=== PATIENT | male | born 1970 | race Caucasian/White ===

== ENCOUNTER 2020-01-12 17:57 | Inpatient (IN) ==
[2020-01-12 19:09] LABS: Basophils % 0.5 %; Eosinophils # 0.2 K/mcL (0.0-0.6); Eosinophils % 2.3 %; Hematocrit 33.9 % (37.5-50.1); Hemoglobin 11.8 g/dL (12.9-16.9); Immature Granulocytes % 0.3 % (0-4); Lymphocytes # 2.5 K/mcL (0.6-4.6); Lymphocytes % 28.5 %; Mean Corpuscular HGB Conc 34.8 g/dL (31.6-35.5); Mean Corpuscular Hemoglobin 29.7 pg (28.0-33.3); Mean Corpuscular Volume 85.4 fL (83.0-100.0); Mean Platelet Volume 10.1 fL (9.4-12.4); Monocytes # 0.5 K/mcL (0.0-1.3); Monocytes % 5.7 %; Neutrophils # 5.4 K/mcL (1.6-8.9); Platelet Count 208 K/mcL (140-400); Red Blood Count 3.97 M/mcL (4.19-5.50); Red Cell Distribution Width 12.7 % (11.5-14.5); Segmented Neutrophils % 62.7 %; White Blood Count 8.6 K/mcL (4.3-11.1)
[2020-01-12 19:25] LABS: Alanine Aminotransferase 16 Units/L (7-52); Albumin 3.6 g/dL (3.5-5.7); Alkaline Phosphatase 71 Units/L (34-104); Aspartate Amino Transferase 24 Units/L (13-39); BUN/Creatinine Ratio 10 (6-26); Bilirubin,Total 0.4 mg/dL (0.3-1.0); Blood Urea Nitrogen 18 mg/dL (6-20); Calcium 8.8 mg/dL (8.6-10.3); Carbon Dioxide 24 mEq/L (23-29); Chloride 108 mEq/L (98-107); Globulin 3.7 g/dL (2.4-3.5); Glucose 152 mg/dL (70-105); Osmolality,Calculated 293 (280-300); Potassium 4.3 mEq/L (3.5-5.1); Sodium 139 mEq/L (136-145); Total Protein 7.3 g/dL (6.4-8.9); eGFR For African Americans 51 (> 60); eGFR For Non-African Americans 42 (> 60)
[2020-01-12 19:26] LABS: Troponin I < 0.03 ng/mL (< 0.04)
[2020-01-12] MEDS: niCARdipine 20 MG/200 ML MLS IVC SCH (20:35)
[2020-01-12] MEDS ORDERED: Naloxone 0.4 MG/ML INJ IVP PRN ×2 (23:34→23:35)
[2020-01-12] MEDS ORDERED: Ondansetron ODT 4 MG TAB.RAPDIS SL PRN (23:35)
[2020-01-12] MEDS ORDERED: Acetaminophen 325 MG TABLET PO PRN (23:35)
[2020-01-12] MEDS ORDERED: Perflutren Lipid Microsphere 1.3 ML in 0.9 % Sodium Chloride 8.7 ML IVP PRN (23:36)
[2020-01-12] MEDS ORDERED: Dextrose Gel 15 GM/37.5 ML TUBE PO PRN ×2 (23:37)
[2020-01-12] MEDS ORDERED: D5% in Water 1,000 ML IVC PRN (23:37)
[2020-01-12] MEDS ORDERED: *HR* Dextrose 50 % in Water (Vial) 50 ML VIAL IVP PRN (23:37)
[2020-01-13] MEDS: niCARdipine 20 MG/200 ML MLS IVC SCH ×5 (00:35→21:17)
[2020-01-13] MEDS: Insulin LISPRO 300 UNITS/3 ML VIAL SQ SCH ×4 (00:45→17:20)
[2020-01-13 01:36] LABS: Basophils % 0.5 %; Eosinophils # 0.1 K/mcL (0.0-0.6); Eosinophils % 1.2 %; Hematocrit 34.5 % (37.5-50.1); Hemoglobin 12.4 g/dL (12.9-16.9); Immature Granulocytes % 0.4 % (0-4); Lymphocytes # 1.4 K/mcL (0.6-4.6); Lymphocytes % 17.4 %; Mean Corpuscular HGB Conc 35.9 g/dL (31.6-35.5); Mean Corpuscular Hemoglobin 30.7 pg (28.0-33.3); Mean Corpuscular Volume 85.4 fL (83.0-100.0); Mean Platelet Volume 10.2 fL (9.4-12.4); Monocytes # 0.4 K/mcL (0.0-1.3); Monocytes % 4.7 %; Neutrophils # 6.2 K/mcL (1.6-8.9); Platelet Count 188 K/mcL (140-400); Red Blood Count 4.04 M/mcL (4.19-5.50); Red Cell Distribution Width 12.8 % (11.5-14.5); Segmented Neutrophils % 75.8 %; White Blood Count 8.1 K/mcL (4.3-11.1)
[2020-01-13 01:58] LABS: Chol/HDL Ratio 5.6 (0-4.9); Phosphorous 2.7 mg/dL (2.7-4.5)
[2020-01-13 02:01] LABS: % Iron Saturation 23 % (20-55); Iron 73 mcg/dL (65-175); Transferrin 222 mg/dL (203-362)
[2020-01-13 02:11] LABS: Thyroid Stimulating Hormone 0.882 mcIU/mL (0.340-5.600)
[2020-01-13 02:16] LABS: Ferritin 118 ng/mL (20-250)
[2020-01-13 02:22] LABS: Folate 12.3 ng/mL (3.0-16.0)
[2020-01-13 10:02] LABS: Bilirubin,Urine Negative (Negative); Blood,Urine Trace (Negative); Clarity,Urine Clear (Clear); Color,Urine Light-Yellow (Yellow); Glucose,Urine (UA) 200 mg/dL (Normal); Hyaline Casts,Urine Few per lpf (None Seen); Ketones,Urine Negative (Negative); Leukocyte Esterase,Urine Negative (Negative); Mucus,Urine Few per lpf (None-Few); Nitrite,Urine Negative (Negative); Protein,Urine >=300 mg/dL (Neg-Trace); Specific Gravity,Urine 1.022 (1.010-1.025); Urobilinogen,Urine Normal (Normal); WBC,Urine 0-3 per hpf (0-3)
[2020-01-13 13:42] LABS: Calcium 8.9 mg/dL (8.6-10.3); Potassium 4.2 mEq/L (3.5-5.1)
[2020-01-13 15:27] LABS: Estimated Average Glucose 180 mg/dl
[2020-01-13] MEDS: amLODIPine 5 MG TABLET PO SCH (16:10)
[2020-01-14] MEDS: niCARdipine 20 MG/200 ML MLS IVC SCH ×4 (00:05→22:55)
[2020-01-14 06:29] LABS: Basophils # 0.1 K/mcL (0.0-0.2); Basophils % 0.6 %; Eosinophils # 0.3 K/mcL (0.0-0.6); Eosinophils % 3.2 %; Hemoglobin 12.7 g/dL (12.9-16.9); Immature Granulocytes % 0.4 % (0-4); Lymphocytes % 31.9 %; Mean Corpuscular HGB Conc 35.3 g/dL (31.6-35.5); Mean Corpuscular Volume 85.1 fL (83.0-100.0); Mean Platelet Volume 10.7 fL (9.4-12.4); Monocytes # 0.7 K/mcL (0.0-1.3); Monocytes % 7.1 %; Neutrophils # 5.4 K/mcL (1.6-8.9); Platelet Count 218 K/mcL (140-400); Red Blood Count 4.23 M/mcL (4.19-5.50); Red Cell Distribution Width 12.7 % (11.5-14.5); Segmented Neutrophils % 56.8 %; White Blood Count 9.5 K/mcL (4.3-11.1)
[2020-01-14 06:56] LABS: Calcium 8.9 mg/dL (8.6-10.3); Potassium 4.2 mEq/L (3.5-5.1)
[2020-01-14] MEDS: amLODIPine 5 MG TABLET PO SCH (08:02)
[2020-01-14] MEDS: Insulin LISPRO 300 UNITS/3 ML VIAL SQ SCH ×3 (08:02→17:01)
[2020-01-14] MEDS ORDERED: carvediloL 6.25 MG TABLET PO SCH (10:05)
[2020-01-14 16:40] LABS: Complement C3 138 mg/dL (87-200)
[2020-01-14] MEDS: carvediloL 6.25 MG TABLET PO SCH (17:02)
[2020-01-15 01:46] LABS: Protein/Creatinine Ratio,Urine 2.59 mg/mg (0.00-0.20); Sodium, Urine 59.9 mEq/L
[2020-01-15] MEDS: Insulin LISPRO 300 UNITS/3 ML VIAL SQ SCH ×3 (07:46→16:35)
[2020-01-15] MEDS: carvediloL 6.25 MG TABLET PO SCH ×2 (08:02→16:35)
[2020-01-15] MEDS: amLODIPine 5 MG TABLET PO SCH (08:04)
[2020-01-15] MEDS ORDERED: Cyanocobalamin (B-12) 1,000 MCG TABLET PO SCH (09:00)
[2020-01-15 11:44] LABS: Basophils # 0.1 K/mcL (0.0-0.2); Basophils % 1.1 %; Eosinophils # 0.2 K/mcL (0.0-0.6); Eosinophils % 3.2 %; Hematocrit 35.2 % (37.5-50.1); Hemoglobin 12.5 g/dL (12.9-16.9); Immature Granulocytes % 0.2 % (0-4); Lymphocytes # 1.9 K/mcL (0.6-4.6); Lymphocytes % 29.6 %; Mean Corpuscular HGB Conc 35.5 g/dL (31.6-35.5); Mean Corpuscular Hemoglobin 30.5 pg (28.0-33.3); Mean Corpuscular Volume 85.9 fL (83.0-100.0); Mean Platelet Volume 10.3 fL (9.4-12.4); Monocytes # 0.5 K/mcL (0.0-1.3); Neutrophils # 3.8 K/mcL (1.6-8.9); Platelet Count 223 K/mcL (140-400); Red Cell Distribution Width 12.5 % (11.5-14.5); Segmented Neutrophils % 57.9 %; White Blood Count 6.5 K/mcL (4.3-11.1)
[2020-01-15 12:08] LABS: Potassium 4.5 mEq/L (3.5-5.1)
[2020-01-15 15:38] VITALS: BP 173/103
[2020-01-15] MEDS ORDERED: Valsartan 80 MG TABLET PO SCH ×2 (16:26→21:00)
[2020-01-17 08:38] LABS: ANA IgG by ELISA NONE DETECTED (None Detected)
== END 2020-01-15 16:23 | disposition home or self-care (01) | DRG 305 ==
LOC: EMEROOARM 17:57 → 2NNU 17:57 → SUATTDRO 21:36 → 2NNU 23:08
PROVIDERS: ADMIT Student in an Organized Health Care Education/Training Program; ATTEND Internal Medicine